=== PATIENT | female | born 1970 | race Asian ===

== ENCOUNTER → 2020-06-29 | Outpatient (CLI) | payer OTHER ==
--- NOTE | 2020-06-29 11:29 | RAD ---
AP and lateral views of the lumbar spine 06/29/2020 INDICATION: Low back pain COMPARISON STUDY: None FINDINGS: No evidence of acute fracture or alignment abnormality is identified. Vertebral body heights are preserved. There is degenerative disc space narrowing at L5-S1 with endplate sclerosis, and what appears to be posterior projecting disc osteophyte complex. Remaining disc spaces are preserved. No significant spondylolysis or spondylolisthesis is identified. No acute soft tissue changes are seen. IMPRESSION: 1. No evidence of acute osseous of normality 2. Degenerative changes of the lumbosacral junction as described. Consider further characterization with MRI as clinically indicated. Electronically signed by: Fabrizio Gomez MD (06/29/2020 11:26 AM) [id number]
== END ==
LOC: RAD 10:54
PROVIDERS: ATTEND Anesthesiology Pain Medicine
DX: M47.817 Spondylosis without myelopathy or radiculopathy, lumbosacral region (principal); M25.78 Osteophyte, vertebrae
CPT/HCPCS: 72100